=== PATIENT | female | born 1970 | race Two or more races ===

== ENCOUNTER 2017-07-29 12:17 | Emergency (ER) | payer MEDICAID ==
[~2017-07-29] VITALS: Ht 154.9 cm; Wt 87.8 kg
[2017-07-29 12:20] VITALS: BP 129/79
[2017-07-29] MEDS ORDERED: methylPREDNISolone SOD SUCC 125 MG/2 ML IVP ONE (13:00)
[2017-07-29] MEDS ORDERED: SODIUM CHLORIDE FLUSH 10ML SYR IVF ONE (13:00)
[2017-07-29] MEDS ORDERED: methylPREDNISolone SOD SUCC 40 MG/ML ONE (13:06)
[2017-07-29] MEDS ORDERED: ALBUTEROL SULFATE 2.5 MG/3 ML ONE (13:20)
[2017-07-29] MEDS: ALBUTEROL SULFATE 2.5 MG/3 ML NPPB SCH (13:22)
== END 2017-07-29 13:53 | disposition home or self-care (01) ==
LOC: ED 13:38
DX: J45.901 Unspecified asthma with (acute) exacerbation (principal); M06.9 Rheumatoid arthritis, unspecified; F17.200 Nicotine dependence, unspecified, uncomplicated; Z90.49 Acquired absence of other specified parts of digestive tract; Z88.6 Allergy status to analgesic agent
CPT/HCPCS: 71010; 93005; 94640; 96374; 99284; J2930; J7613